=== PATIENT | male | born 1950 | race Caucasian/White ===

== ENCOUNTER 2017-12-21 12:02 | Inpatient (IN) | payer MEDICARE, BC ==
[~2017-12-21] VITALS: Ht 182.9 cm; Wt 105.2 kg
[~2017-12-21 12:02] MED LIST: CLEOCIN HCL300 MG PO; NAPROSYN 2250 MG/TAB PO; NO HOME MEDICATIONS; PREDNISONE20 MG PO; PROVENTIL0.09 MG/A1 IH; ZITHROMAX Z PA250 MG PO
[2017-12-21] MEDS ORDERED: VENTOLIN0.09 MG IH (13:14)
[2017-12-21 14:00] LABS: BASO % 0.5 % (0.0-2.0); EOS # 0.2 (0.0-0.7); GRAN # 5.5 (1.4-6.5); GRAN % 72.6 % (42.2-75.2); HEMATOCRIT 42.9 % (42.0-52.0); HEMOGLOBIN 14.6 g/dl (13.5-18.0); INR 1.1 (0.8-3.0); LYMPH # 1.1 (1.2-3.4); LYMPH % 14.2 % (20.0-51.0); MEAN CELL VOLUME 95 fl (80.0-100.0); MEAN CORPUSCULAR HEMOGLOBIN 32 pg (27.0-31.0); MEAN CORPUSCULAR HGB CONC 34 g/dl (33.0-37.0); MEAN PLATELET VOLUME 9.7 fl (7.4-10.4); MONO # 0.8 (0.1-0.6); MONO % 10.2 % (1.7-9.3); PLATELET COUNT 198 K/mm3 (130-400); PROTHROMBIN TIME 12.8 SECONDS (9.7-12.8); RED BLOOD COUNT 4.54 M/mm3 (4.20-5.60); REDCELL DISTRIBUTION WIDTH-CV 12.6 % (11.5-14.5)
[2017-12-21 14:04] LABS: ALBUMIN 3.3 gm/dL (3.5-5.0); BILIRUBIN,TOTAL 0.8 mg/dL (0.0-1.0); CALCIUM 8.6 mg/dL (8.4-10.2); CREATININE, serum 0.71 mg/dL (0.66-1.25); POTASSIUM 3.7 mmol/L (3.4-5.0)
[2017-12-21 16:02] VITALS: BP 154/76; PULSE 85; TEMP 99
[2017-12-21 17:37] LABS: PARTIAL THROMBOPLASTIN TIME 33.2 SECONDS (26.0-37.0)
[2017-12-21 19:39] LABS: COLLECTION METHOD CLEAN CATCH
[2017-12-21 19:49] LABS: MUCOUS Present /lpf; PH 6 (5-8); SQUAMOUS EPITHELIAL None Seen /hpf; URINE APPEARANCE Clear; URINE BACTERIA None Seen /hpf; URINE BILIRUBIN Negative (NEGATIVE); URINE BLOOD 1+ (NEGATIVE); URINE COLOR Amber; URINE GLUCOSE Negative (NEGATIVE); URINE KETONE Negative (NEGATIVE); URINE LEUKOCYTE ESTERASE Negative (NEGATIVE); URINE NITRATE Negative (NEGATIVE); URINE PROTEIN(semi-quant) Negative (NEGATIVE); URINE RBC 0-2 /hpf; URINE WBC 0-2 /hpf
[2017-12-21 19:50] VITALS: BP 163/76; PULSE 81; TEMP 98.1
[2017-12-22 00:31] VITALS: BP 131/73; PULSE 72; TEMP 98.6
[2017-12-22 04:01] VITALS: BP 128/66; PULSE 76; TEMP 97.7
[2017-12-22 06:01] LABS: INR 1.2 (0.8-3.0); PROTHROMBIN TIME 13.1 SECONDS (9.7-12.8)
[2017-12-22 06:55] LABS: BASO % 0.6 % (0.0-2.0); EOS # 0.2 (0.0-0.7); EOS % 2.5 % (0-4.0); GRAN # 3.9 (1.4-6.5); GRAN % 62.2 % (42.2-75.2); HEMATOCRIT 38.9 % (42.0-52.0); LYMPH # 1.5 (1.2-3.4); LYMPH % 23.6 % (20.0-51.0); MEAN CELL VOLUME 95 fl (80.0-100.0); MEAN CORPUSCULAR HEMOGLOBIN 32 pg (27.0-31.0); MEAN CORPUSCULAR HGB CONC 33 g/dl (33.0-37.0); MEAN PLATELET VOLUME 10.2 fl (7.4-10.4); MONO # 0.7 (0.1-0.6); MONO % 10.8 % (1.7-9.3); PLATELET COUNT 176 K/mm3 (130-400); RED BLOOD COUNT 4.08 M/mm3 (4.20-5.60); REDCELL DISTRIBUTION WIDTH-CV 12.7 % (11.5-14.5)
[2017-12-22 07:10] LABS: ALBUMIN 2.8 gm/dL (3.5-5.0); BILIRUBIN,TOTAL 0.8 mg/dL (0.0-1.0); CALCIUM 8.3 mg/dL (8.4-10.2); CREATININE, serum 0.65 mg/dL (0.66-1.25); POTASSIUM 3.9 mmol/L (3.4-5.0); TOTAL PROTEIN 5.9 gm/dL (6.4-8.2)
[2017-12-22 07:44] VITALS: BP 125/74; PULSE 71; TEMP 98.3
[2017-12-22 11:52] VITALS: BP 136/72; PULSE 74; TEMP 98.6
[2017-12-22 16:28] VITALS: BP 136/63; PULSE 72; TEMP 98.8
[2017-12-22 17:09] LABS: PERITONEAL -POLYMORPHONUCLEAR 7.4 % (0-25); PERITONEAL FLUID RBC 0 /mm3 (0-0)
[2017-12-22 19:36] VITALS: BP 136/68; PULSE 92; TEMP 98.6
[2017-12-23 00:25] VITALS: BP 139/76; PULSE 80; TEMP 98.6
[2017-12-23 04:38] VITALS: BP 142/62; PULSE 67; TEMP 98.6
[2017-12-23 06:50] LABS: BASO % 0.4 % (0.0-2.0); EOS # 0.2 (0.0-0.7); EOS % 3.2 % (0-4.0); GRAN # 3.3 (1.4-6.5); GRAN % 61.3 % (42.2-75.2); HEMATOCRIT 39.1 % (42.0-52.0); HEMOGLOBIN 13.3 g/dl (13.5-18.0); LYMPH # 1.4 (1.2-3.4); LYMPH % 25.5 % (20.0-51.0); MEAN CELL VOLUME 94 fl (80.0-100.0); MEAN CORPUSCULAR HEMOGLOBIN 32 pg (27.0-31.0); MEAN CORPUSCULAR HGB CONC 34 g/dl (33.0-37.0); MEAN PLATELET VOLUME 9.9 fl (7.4-10.4); MONO # 0.5 (0.1-0.6); MONO % 9.2 % (1.7-9.3); PLATELET COUNT 167 K/mm3 (130-400); RED BLOOD COUNT 4.15 M/mm3 (4.20-5.60); REDCELL DISTRIBUTION WIDTH-CV 12.5 % (11.5-14.5)
[2017-12-23 06:51] LABS: INR 1.2 (0.8-3.0); PROTHROMBIN TIME 13.3 SECONDS (9.7-12.8)
[2017-12-23 07:01] LABS: ALBUMIN 2.9 gm/dL (3.5-5.0); BILIRUBIN,TOTAL 0.8 mg/dL (0.0-1.0); CALCIUM 8.5 mg/dL (8.4-10.2); CREATININE, serum 0.62 mg/dL (0.66-1.25); POTASSIUM 3.8 mmol/L (3.4-5.0); TOTAL PROTEIN 6.1 gm/dL (6.4-8.2)
[2017-12-23] MEDS ORDERED: LOVENOX120 MG/0.8 SQ (09:01)
[2017-12-23 11:48] VITALS: BP 129/87; PULSE 73
== END 2017-12-23 12:00 | disposition home or self-care (01) | DRG 443 ==
LOC: MEDICAL 12:02
PROVIDERS: Family Medicine; Internal Medicine; Nurse Practitioner Family
PROC: 0W9G3ZX Drainage of Peritoneal Cavity, Percutaneous Approach, Diagnostic (ICD-10-PCS; principal; 2017-12-22)
DX: I81 Portal vein thrombosis (principal); K70.31 Alcoholic cirrhosis of liver with ascites; F10.10 Alcohol abuse, uncomplicated; F17.210 Nicotine dependence, cigarettes, uncomplicated; R16.0 Hepatomegaly, not elsewhere classified; B19.20 Unspecified viral hepatitis C without hepatic coma
CPT/HCPCS: 87522; 99232-AI; 99239; J1644

== ENCOUNTER → 2017-12-26 | Outpatient (CLI) | payer BC ==
[2017-12-26] VITALS (18 sets, daily range): BP systolic 137–160; BP diastolic 77–96; PULSE 62–80
[~2017-12-26] VITALS: Ht 182.9 cm; Wt 103.7 kg
[~2017-12-26] MED LIST changes: +LOVENOX120 MG/0.8 SQ; +VENTOLIN0.09 MG IH
[2017-12-26 12:44] LABS: INR 1.1 (0.8-3.0)
== END ==
LOC: COL.RAD 11:57
PROVIDERS: Family Medicine
DX: K76.89 Other specified diseases of liver (principal)
CPT/HCPCS: 27584

== ENCOUNTER → 2018-01-10 | Outpatient (CLI) | payer BC | LOC: COL.RAD 09:26 | DX: C22.0 Liver cell carcinoma (principal); K80.20 Calculus of gallbladder without cholecystitis without obstruction | CPT/HCPCS: Q9967 ==

== ENCOUNTER → 2018-03-28 | Outpatient (CLI) | payer BC ==
[~2018-03-28] VITALS: Ht 182.9 cm; Wt 95.6 kg
[~2018-03-28] MED LIST changes: +ALDACTONE 100M100 MG PO; +LASIX 40MG TABL40 MG PO; +ROXICODONE 55 MG/TAB PO; +ZOFRAN 4MG T4 MG/TAB PO
[2018-03-28 13:29] VITALS: BP 135/79; PULSE 96
[2018-03-28 14:55] VITALS: BP 130/88; PULSE 81
== END ==
LOC: COL.RAD 13:00
DX: C22.0 Liver cell carcinoma (principal); I81 Portal vein thrombosis; K74.60 Unspecified cirrhosis of liver; R14.0 Abdominal distension (gaseous)

== ENCOUNTER 2018-04-02 14:34 | Emergency (ER) | payer BC ==
[~2018-04-02] VITALS: Ht 182.9 cm; Wt 90.0 kg
[~2018-04-02 14:34] MED LIST changes: -ROXICODONE 55 MG/TAB PO; -ZOFRAN 4MG T4 MG/TAB PO
[2018-04-02 14:55] VITALS: TEMP 98.2
[2018-04-02] MEDS ORDERED: ZOFRAN 4MG T4 MG/TAB PO (15:22)
[2018-04-02] MEDS ORDERED: ROXICODONE 55 MG/TAB PO (15:22)
[2018-04-02 16:38] LABS: BASO % 0.4 % (0.0-2.0); EOS # 0.1 (0.0-0.7); EOS % 1.1 % (0-4.0); GRAN # 6.6 (1.4-6.5); GRAN % 82.2 % (42.2-75.2); HEMATOCRIT 38.6 % (42.0-52.0); HEMOGLOBIN 13.4 g/dl (13.5-18.0); LYMPH # 0.3 (1.2-3.4); LYMPH % 3.1 % (20.0-51.0); MEAN CELL VOLUME 93 fl (80.0-100.0); MEAN CORPUSCULAR HEMOGLOBIN 32 pg (27.0-31.0); MEAN CORPUSCULAR HGB CONC 35 g/dl (33.0-37.0); MEAN PLATELET VOLUME 9.6 fl (7.4-10.4); MONO % 12.7 % (1.7-9.3); PLATELET COUNT 141 K/mm3 (130-400); RED BLOOD COUNT 4.14 M/mm3 (4.20-5.60); REDCELL DISTRIBUTION WIDTH-CV 15.1 % (11.5-14.5)
[2018-04-02 16:47] LABS: ALBUMIN 3.1 gm/dL (3.5-5.0); BILIRUBIN,TOTAL 1.5 mg/dL (0.0-1.0); CALCIUM 8.7 mg/dL (8.4-10.2); CREATININE, serum 1.07 mg/dL (0.66-1.25); POTASSIUM 3.5 mmol/L (3.4-5.0); TOTAL PROTEIN 6.6 gm/dL (6.4-8.2)
[2018-04-02 17:39] VITALS: BP 137/67
[2018-04-02 20:16] VITALS: PULSE 92
== END 2018-04-02 20:16 | disposition home or self-care (01) ==
LOC: COL.ER 14:34
PROVIDERS: Emergency Medicine
DX: K59.00 Constipation, unspecified (principal); R18.8 Other ascites; J44.9 Chronic obstructive pulmonary disease, unspecified; F17.210 Nicotine dependence, cigarettes, uncomplicated; Z79.891 Long term (current) use of opiate analgesic; Z85.05 Personal history of malignant neoplasm of liver; Z87.19 Personal history of other diseases of the digestive system
CPT/HCPCS: J7030

== ENCOUNTER 2018-04-09 13:12 | Emergency (ER) | payer BC ==
[~2018-04-09] VITALS: Ht 182.9 cm; Wt 96.4 kg
[~2018-04-09 13:12] MED LIST changes: +ROXICODONE 55 MG/TAB PO; +ZOFRAN 4MG T4 MG/TAB PO
[2018-04-09 13:15] VITALS: TEMP 98
[2018-04-09 14:49] LABS: BASO % 0.1 % (0.0-2.0); EOS # 0.1 (0.0-0.7); EOS % 0.6 % (0-4.0); GRAN # 13.5 (1.4-6.5); GRAN % 85.8 % (42.2-75.2); HEMATOCRIT 38.4 % (42.0-52.0); HEMOGLOBIN 13.3 g/dl (13.5-18.0); LYMPH # 0.3 (1.2-3.4); LYMPH % 1.9 % (20.0-51.0); MEAN CELL VOLUME 93 fl (80.0-100.0); MEAN CORPUSCULAR HEMOGLOBIN 32 pg (27.0-31.0); MEAN CORPUSCULAR HGB CONC 35 g/dl (33.0-37.0); MEAN PLATELET VOLUME 9.8 fl (7.4-10.4); MONO # 1.6 (0.1-0.6); MONO % 10.4 % (1.7-9.3); PLATELET COUNT 199 K/mm3 (130-400); RED BLOOD COUNT 4.13 M/mm3 (4.20-5.60); REDCELL DISTRIBUTION WIDTH-CV 14.8 % (11.5-14.5)
[2018-04-09 14:55] LABS: INR 1.2 (0.8-3.0); PROTHROMBIN TIME 13.2 SECONDS (9.7-12.8)
[2018-04-09 14:57] LABS: PARTIAL THROMBOPLASTIN TIME 31.8 SECONDS (26.0-37.0)
[2018-04-09 14:58] LABS: ALBUMIN 2.9 gm/dL (3.5-5.0); BILIRUBIN,TOTAL 1.5 mg/dL (0.0-1.0); CALCIUM 8.5 mg/dL (8.4-10.2); CREATININE, serum 2.96 mg/dL (0.66-1.25); MAGNESIUM 2.3 mg/dL (1.6-2.3); PHOSPHOROUS 7.2 mg/dL (2.5-4.5); POTASSIUM 4.4 mmol/L (3.4-5.0); TOTAL PROTEIN 6.4 gm/dL (6.4-8.2)
[2018-04-09 15:12] LABS: COLLECTION METHOD CLEAN CATCH
[2018-04-09 15:23] LABS: HYALINE CAST >12 /lpf; MUCOUS Present /lpf; PH 5 (5-8); URINE APPEARANCE Hazy; URINE BACTERIA Rare /hpf; URINE BILIRUBIN Negative (NEGATIVE); URINE BLOOD Negative (NEGATIVE); URINE COLOR Amber; URINE GLUCOSE Negative (NEGATIVE); URINE KETONE Negative (NEGATIVE); URINE LEUKOCYTE ESTERASE Negative (NEGATIVE); URINE NITRATE Negative (NEGATIVE); URINE PROTEIN(semi-quant) Negative (NEGATIVE); URINE RBC 0-2 /hpf; URINE UROBILINOGEN >=4.0 mg/dL (NEGATIVE)
[2018-04-09 17:26] VITALS: BP 114/68; PULSE 98
== END 2018-04-09 17:29 | disposition left against medical advice (07) ==
LOC: COL.ER 13:12
PROVIDERS: Emergency Medicine
DX: N19 Unspecified kidney failure (principal); K56.41 Fecal impaction; E87.1 Hypo-osmolality and hyponatremia; I10 Essential (primary) hypertension; Z86.19 Personal history of other infectious and parasitic diseases; Z85.05 Personal history of malignant neoplasm of liver
CPT/HCPCS: J7050

== ENCOUNTER 2018-04-19 15:05 | Inpatient (IN) | payer MEDICARE, BC ==
[~2018-04-19] VITALS: Ht 182.9 cm; Wt 87.0 kg
[2018-04-19] VITALS (182 sets, daily range): BP systolic 85–94; BP diastolic 48–53; PULSE 79–89; TEMP 98; O2SAT 79–100
[2018-04-19 15:38] LABS: HEMOGLOBIN 12.7 g/dl (13.5-18.0); MEAN CELL VOLUME 91 fl (80.0-100.0); MEAN CORPUSCULAR HEMOGLOBIN 33 pg (27.0-31.0); MEAN CORPUSCULAR HGB CONC 36 g/dl (33.0-37.0); PLATELET COUNT 305 K/mm3 (130-400); RED BLOOD COUNT 3.87 M/mm3 (4.20-5.60)
[2018-04-19 15:44] LABS: HEMATOCRIT 35.2 % (42.0-52.0)
[2018-04-19 15:49] LABS: ALBUMIN 2.9 gm/dL (3.5-5.0); BILIRUBIN,TOTAL 2.4 mg/dL (0.0-1.0); CALCIUM 8.2 mg/dL (8.4-10.2); MAGNESIUM 3.1 mg/dL (1.6-2.3); TOTAL PROTEIN 6.3 gm/dL (6.4-8.2)
[2018-04-19 15:54] LABS: ANISOCYTOSIS 2+; BAND 8 % (0-10); LYMPHOCYTE 1 % (20.0-51.0); MICROCYTOSIS 1+; NEUTROPHILS 86 % (42.0-75.2); PLATELET ESTIMATE NORMAL (NORMAL)
[2018-04-19 15:57] LABS: PHOSPHOROUS 9.1 mg/dL (2.5-4.5)
[2018-04-19 15:59] LABS: CREATININE, serum 4.99 mg/dL (0.66-1.25); POTASSIUM 6.5 mmol/L (3.4-5.0)
[2018-04-19 16:06] LABS: TROPONIN-I 0.073 ng/mL (0.000-0.034)
[2018-04-19 17:06] LABS: PERITONEAL -POLYMORPHONUCLEAR 26.7 % (0-25); PERITONEAL FLUID RBC 13000 /mm3 (0-0)
[2018-04-19] MEDS ORDERED: LASIX 80MG TABL80 MG PO (18:05)
[2018-04-19] MEDS ORDERED: ZOFRAN 4MG T4 MG/TAB PO (18:06)
[2018-04-19] MEDS ORDERED: ROXICODONE 55 MG/TAB PO (18:08)
[2018-04-19] MEDS ORDERED: ALDACTONE 100M100 MG PO (18:18)
[2018-04-20] VITALS (699 sets, daily range): BP systolic 70–77; BP diastolic 31–43; PULSE 78–87; TEMP 97.2–98.1; O2SAT 64–100
[2018-04-20 03:54] LABS: HEMOGLOBIN 12.1 g/dl (13.5-18.0); MEAN CELL VOLUME 94 fl (80.0-100.0); MEAN CORPUSCULAR HEMOGLOBIN 32 pg (27.0-31.0); MEAN CORPUSCULAR HGB CONC 34 g/dl (33.0-37.0); PLATELET COUNT 223 K/mm3 (130-400); RED BLOOD COUNT 3.76 M/mm3 (4.20-5.60); REDCELL DISTRIBUTION WIDTH-CV 15.4 % (11.5-14.5)
[2018-04-20 03:56] LABS: HEMATOCRIT 35.4 % (42.0-52.0)
[2018-04-20 04:01] LABS: INR 1.2 (0.8-3.0); PROTHROMBIN TIME 13.5 SECONDS (9.7-12.8)
[2018-04-20 04:03] LABS: PARTIAL THROMBOPLASTIN TIME 22.9 SECONDS (26.0-37.0)
[2018-04-20 04:05] LABS: ALBUMIN 2.9 gm/dL (3.5-5.0); BILIRUBIN,TOTAL 2.5 mg/dL (0.0-1.0); CALCIUM 7.7 mg/dL (8.4-10.2)
[2018-04-20 04:08] LABS: CREATININE, serum 4.76 mg/dL (0.66-1.25)
[2018-04-20 04:38] LABS: BAND 5 % (0-10); BASOPHIL 1 % (0-2); LYMPHOCYTE 1 % (20.0-51.0); NEUTROPHILS 85 % (42.0-75.2); PLATELET ESTIMATE NORMAL (NORMAL)
[2018-04-20 04:39] LABS: ANISOCYTOSIS 1+; HYPERSEGMENTED POLYS PRESENT
[2018-04-20 04:40] LABS: BURR CELLS 1+
[2018-04-20 05:14] LABS: TROPONIN-I 0.086 ng/mL (0.000-0.034)
[2018-04-20 08:05] LABS: PATHOLOGY DIFF REVIEW OK
== END 2018-04-20 14:45 | disposition hospice, inpatient (51) | DRG 871 ==
LOC: COL.ER 15:05 → ICU 16:28
PROVIDERS: Emergency Medicine; Hospitalist; Internal Medicine Nephrology
PROC: 0W9G3ZZ Drainage of Peritoneal Cavity, Percutaneous Approach (ICD-10-PCS; principal; 2018-04-20)
DX: A41.9 Sepsis, unspecified organism (principal); K65.2 Spontaneous bacterial peritonitis; I21.4 Non-ST elevation (NSTEMI) myocardial infarction; C22.9 Malignant neoplasm of liver, not specified as primary or secondary; Z66 Do not resuscitate; Z51.5 Encounter for palliative care; N17.9 Acute kidney failure, unspecified; N18.4 Chronic kidney disease, stage 4 (severe); E87.2 Acidosis; K76.6 Portal hypertension; E87.1 Hypo-osmolality and hyponatremia; E87.5 Hyperkalemia; K70.31 Alcoholic cirrhosis of liver with ascites; F17.210 Nicotine dependence, cigarettes, uncomplicated; D64.9 Anemia, unspecified
CPT/HCPCS: 99239; J0610; J0696; J1815; J2405; J3010; J7030; P9047